=== PATIENT | female | born 1975 | race Caucasian/White ===

== ENCOUNTER → 2016-07-28 | Outpatient (CLI) | payer OTHER ==
[~2016-07-28] MED LIST: CELEXA40 MG PO; NORMODYNE,TRAN200 MG PO; WELLBUTRIN XL150 MG PO
== END | disposition home or self-care (01) ==
LOC: CDC 10:56
DX: I45.9 Conduction disorder, unspecified (principal); M47.896 Other spondylosis, lumbar region; M54.5 Low back pain; M54.17 Radiculopathy, lumbosacral region; M99.03 Segmental and somatic dysfunction of lumbar region
CPT/HCPCS: 93000

== ENCOUNTER 2016-08-02 05:21 | Inpatient (IN) | payer OTHER ==
[~2016-08-02] VITALS: Ht 160 cm; Wt 85.0 kg
[2016-08-02] MEDS ORDERED: AMLODIPINE BES2.5 MG PO (05:39)
[2016-08-02] MEDS ORDERED: ZITHROMAX Z-PA250 MG PO (05:40)
[2016-08-02 05:42] VITALS: BP 145/84
[2016-08-02 12:52] VITALS: BP 104/56
[2016-08-02 16:23] VITALS: BP 136/77
[2016-08-02 16:27] VITALS: BP 115/68
[2016-08-02 20:30] VITALS: BP 125/79
[2016-08-03] VITALS: BP 126/80
[2016-08-03 04:33] VITALS: BP 129/69
[2016-08-03 08:00] VITALS: BP 125/77
[2016-08-03 16:10] VITALS: BP 107/67
[2016-08-03 19:59] VITALS: BP 111/63
[2016-08-03 23:43] VITALS: BP 108/63
[2016-08-04 07:24] VITALS: BP 123/77
[2016-08-04] MEDS ORDERED: CYCLOBENZAPRINE10 MG PO (10:18)
[2016-08-04] MEDS ORDERED: HYDROCODON-ACE1 EAC7 PO (10:18)
[2016-08-04] MEDS ORDERED: ADULT FOLDING1 EACH MC (10:18)
[2016-08-04] MEDS ORDERED: FENTANYL1 EAC4 TD (10:18)
== END 2016-08-04 14:04 | disposition home or self-care (01) | DRG 460 ==
LOC: 2SOUTH → 3EAST 05:21 → 2SOUTH 10:39 → 3EAST 12:34 → 2SOUTH 13:33 → SDC 14:52 → EDSTATUS 14:53 → 2SOUTH 14:58 → 3EAST 08-04 14:04
PROC: 0SG30A0 Fusion of Lumbosacral Joint with Interbody Fusion Device, Anterior Approach, Anterior Column, Open Approach (ICD-10-PCS; principal; 2016-08-02)
DX: M51.17 Intervertebral disc disorders with radiculopathy, lumbosacral region (principal); M48.07 Spinal stenosis, lumbosacral region; M40.56 Lordosis, unspecified, lumbar region; M25.78 Osteophyte, vertebrae; M99.03 Segmental and somatic dysfunction of lumbar region; M47.896 Other spondylosis, lumbar region; R42 Dizziness and giddiness; I10 Essential (primary) hypertension; F41.9 Anxiety disorder, unspecified; F32.9 Major depressive disorder, single episode, unspecified; Z88.0 Allergy status to penicillin; Z88.5 Allergy status to narcotic agent
CPT/HCPCS: 72100; 76000; 93005; 94799; J0131; J1100; J1170; J1885; J2060; J2250; J2405; J2710; J3010; J3370; J3480; J7040

== ENCOUNTER 2016-08-11 08:39 | Observation (INO) | payer OTHER ==
[~2016-08-11] VITALS: Ht 160 cm; Wt 85.0 kg
[~2016-08-11 08:39] MED LIST changes: +ADULT FOLDING1 EACH MC; +AMLODIPINE BES2.5 MG PO; +CYCLOBENZAPRINE10 MG PO; +FENTANYL1 EAC4 TD; +HYDROCODON-ACE1 EAC7 PO; +WELLBUTRIN SR200 MG PO; +ZITHROMAX Z-PA250 MG PO
[2016-08-11] MEDS ORDERED: WELLBUTRIN XL300 MG PO ×2 (12:00→12:01)
[2016-08-11 12:30] VITALS: BP 133/89
[2016-08-11 21:15] VITALS: BP 117/74
[2016-08-11 23:18] VITALS: BP 106/63
[2016-08-12 05:00] VITALS: BP 110/68
[2016-08-12 07:35] VITALS: BP 117/68
[2016-08-12] MEDS ORDERED: LORTAB 5-325 M1 EACH PO (15:12)
[2016-08-12] MEDS ORDERED: FLEXERIL10 MG PO (15:12)
[2016-08-12] MEDS ORDERED: BACTRIM,SEPT1 TABLET PO (15:13)
== END 2016-08-12 16:00 | disposition home or self-care (01) ==
LOC: 2SOUTH 08:39 → 3EAST 20:26
PROC: 0SG30A1 (ICD-10-PCS; principal; 2016-08-11)
DX: M54.17 Radiculopathy, lumbosacral region (principal); M99.03 Segmental and somatic dysfunction of lumbar region; M89.28 Other disorders of bone development and growth, other site; Z98.1 Arthrodesis status; I10 Essential (primary) hypertension; F41.9 Anxiety disorder, unspecified; Z68.33 Body mass index [BMI] 33.0-33.9, adult
CPT/HCPCS: 72100; 76000; 86850; 86900; 86901; 95886; C1713; G0378; J0131; J0330; J1100; J1170; J1580; J1885; J2250; J2405; J2930; J3010; J3370; J3480; S0020